=== PATIENT | male | born 1990 | race African-American/Black ===

== ENCOUNTER 2017-06-28 06:45 | Observation (INO) | payer SELFPAY ==
[~2017-06-28] VITALS: Ht 185.4 cm; Wt 76.0 kg
[~2017-06-28 06:45] MED LIST: PROM25SU8 PO; Z.0.NO CURRENT MEDS
[2017-06-28 06:48] VITALS: BP 145/84; PULSE 82; RESP 18; TEMP 98.7; O2SAT 97
[2017-06-28] MEDS ORDERED: SODIUM CHLOR 0.9% 1000 ML INJ 1,000 ML IV SCH (07:22)
--- NOTE | 2017-06-28 07:22 | PD ---
HPI Chief Complaint: Oral / Dental Pain or Problem Time Seen by Provider: 07:19 Travel History International Travel<30 days: No Contact w/Intl Traveler<30days: No Traveled to known affect area: No History of Present Illness HPI 27-year-old Afro-[place]ian male presents emergency Department with worsening dental pain on the right lower jaw emanating from the number 29/30 tooth. Patient states it started yesterday but got much worse last evening. He has had fever and chills. Increasing pain 10 out of 10 with swelling to the right lower jaw extending into the right neck, with reports of radiation into the neck to the shoulder. Patient is having difficulty swallowing, but states no swelling in the throat itself. He complains of pain under the tongue. Patient has no previous history of dental issues or diabetes. He has no known drug allergies. PFSH Past Medical History Medical History: Denies Significant Hx Diminished Hearing: No Immunizations Current: Yes Past Surgical History Surgical History: No Previous Surgery Social History Alcohol Use: Yes Tobacco Use: No Substance Use: Yes (marijuana) Allergies-Medications (Allergen,Severity, Reaction): Coded Allergies: No Known Allergies (Verified Adverse Reaction, Unknown, 06/28/17) Reported Meds & Prescriptions Reported Meds & Active Scripts Active Tramadol (Tramadol HCl) 50 Mg Tab 50 Mg PO Q6H PRN Prednisone 20 Mg Tab 20 Mg PO BID 5 Days Clindamycin (Clindamycin HCl) 150 Mg Cap 300 Mg PO Q6H 10 Days Review of Systems Except as stated in HPI: all other systems reviewed are Neg General / Constitutional: Positive: Fever, Chills Eyes: No: Visual changes HENT: Positive: Neck Stiffness, Neck Pain, Dental Difficulties, No: Headaches, Vertigo, Lightheadedness, Sore Throat, Rhinitis, Rhinorrhea, Congestion, Nosebleed, Gingival Bleeding, Ear Discharge, Earache Cardiovascular: No: Chest Pain or Discomfort Respiratory: No: Shortness of Breath Gastrointestinal: No: Abdominal Pain Genitourinary: No: Dysuria Musculoskeletal: No: Pain Skin: No Rash Neurologic: No: Weakness Psychiatric: No: Depression Endocrine: No: Polydipsia Hematologic/Lymphatic: No: Easy Bruising Physical Exam Narrative GENERAL: Patient appears in moderate to severe distress. SKIN: Warm and dry. Normal color. Normal turgor. No erythema. HEAD: Atraumatic. Normocephalic. Patient has swelling to the right lower jaw with mild swelling into the right anterior neck below the ramus which is extremely tender. EYES: Pupils equal and round. No scleral icterus. No injection or drainage. ENT: No nasal bleeding or discharge. Mucous membranes pink and moist. TMs are clear bilaterally. No sinus tenderness. Patient has swelling and significant tenderness along the right lower jaw. Teeth actually look in fairly good repair with no obvious caries. No drainable abscesses noted. The area below the tongue does not seem to be minimally swollen or indurated. Airway appears normal. Uvula is midline. NECK: Trachea midline. Supple. Tender with palpation to the right anterior aspect with mild swelling noted below the dental abscess area. No significant lymphadenopathy. CARDIOVASCULAR: Regular rate and rhythm. RESPIRATORY: No accessory muscle use. Clear to auscultation. Breath sounds equal bilaterally. GASTROINTESTINAL: Abdomen soft, non-tender, nondistended. Hepatic and splenic margins not palpable. MUSCULOSKELETAL: Extremities without clubbing, cyanosis, or edema. No obvious deformities. NEUROLOGICAL: Awake and alert. No obvious cranial nerve deficits. Motor grossly within normal limits. Five out of 5 muscle strength in the arms and legs. Normal speech. PSYCHIATRIC: Appropriate mood and affect; insight and judgment normal. Data Data Last Documented VS Vital Signs Date Time Temp Pulse Resp B/P (MAP) Pulse Ox O2 Delivery O2 Flow Rate FiO2 06/28/17 07:57 18 06/28/17 06:48 98.7 82 145/84 (104) 97 Orders Orders Complete Blood Count With Diff (06/28/17 07:22) Comprehensive Metabolic Panel (06/28/17 07:22) Lactic Acid (06/28/17 07:22) Iv Access Insert/Monitor (06/28/17 07:22) Ecg Monitoring (06/28/17 07:22) Oximetry (06/28/17 07:22) Sodium Chlor 0.9% 1000 Ml Inj (Ns 1000 M (06/28/17 07:22) Sodium Chloride 0.9% Flush (Ns Flush) (06/28/17 07:30) Ketorolac Inj (Toradol Inj) (06/28/17 07:30) Morphine Inj (Morphine Inj) (06/28/17 07:30) Clindamycin 900 Mg/Ns Premix (Cleocin 90 (06/28/17 07:30) Ct Soft Tiss Neck W Iv Cont (06/28/17 ) Dexamethasone Inj (Decadron Inj) (06/28/17 07:45) Iohexol 350 Inj (Omnipaque 350 Inj) (06/28/17 08:38) Labs Laboratory Tests Test 06/28/17 07:40 White Blood Count 11.6 TH/MM3 Red Blood Count 5.05 MIL/MM3 Hemoglobin 15.1 GM/DL Hematocrit 46.4 % Mean Corpuscular Volume 91.8 FL Mean Corpuscular Hemoglobin 30.0 PG Mean Corpuscular Hemoglobin Concent 32.6 % Red Cell Distribution Width 13.9 % Platelet Count 270 TH/MM3 Mean Platelet Volume 8.8 FL Neutrophils (%) (Auto) 75.0 % Lymphocytes (%) (Auto) 16.2 % Monocytes (%) (Auto) 7.2 % Eosinophils (%) (Auto) 1.2 % Basophils (%) (Auto) 0.4 % Neutrophils # (Auto) 8.7 TH/MM3 Lymphocytes # (Auto) 1.9 TH/MM3 Monocytes # (Auto) 0.8 TH/MM3 Eosinophils # (Auto) 0.1 TH/MM3 Basophils # (Auto) 0.0 TH/MM3 CBC Comment DIFF FINAL Differential Comment Blood Urea Nitrogen 13 MG/DL Creatinine 1.18 MG/DL Random Glucose 77 MG/DL Total Protein 8.4 GM/DL Albumin 4.4 GM/DL Calcium Level 9.5 MG/DL Alkaline Phosphatase 85 U/L Aspartate Amino Transf (AST/SGOT) 13 U/L Alanine Aminotransferase (ALT/SGPT) 20 U/L Total Bilirubin 0.3 MG/DL Sodium Level 139 MEQ/L Potassium Level 4.3 MEQ/L Chloride Level 103 MEQ/L Carbon Dioxide Level 31.5 MEQ/L Anion Gap 5 MEQ/L Estimat Glomerular Filtration Rate 89 ML/MIN Lactic Acid Level 1.6 mmol/L [facility] Medical Decision Making Medical Screen Exam Complete: Yes Emergency Medical Condition: Yes Differential Diagnosis Dental pain. Dental abscess. Possible early Linus's angina. Narrative Course Patient appears medically stable at time of exam although in pain. Labs ordered including CBC, CMP, lactic acid. IV access is obtained and the patient is given 900 mg clindamycin IV. Patient is also given 30 mg Toradol IV, 8 mg Decadron IV, 2 mg morphine IV. Patient is discussed with and examined with Dr. Trent, who agrees CT of the soft tissues of the neck is warranted. CT read shows: Dental disease involving the maxillary dual original the right in the region of the first and second molar with extensive phlegmonous change and possible subperiosteal abscess in the minimal surface. Patient and CT findings are discussed with Dr. Trent. He recommends running the patient by Dr. Plummer, the oral surgeon. Patient was discussed with Dr. Plummer who recommends admitting the patient overnight for IV antibiotics with follow-up in his office tomorrow morning. Call was placed to the hospitalist for admission. Diagnosis Primary Impression: Dental abscess Admitting Information Admitting Physician Requests: Observation Condition: Stable Ashish Lindsey Jun 28, 2017 07:22
[2017-06-28] MEDS ORDERED: SODIUM CHLORIDE 0.9% FLUSH 10 ML FLUSH IV FLUSH PRN ×2 (07:30→11:30)
[2017-06-28] MEDS ORDERED: MORPHINE SULFATE 2 MG/ML INJ IV PUSH ONE (07:30)
[2017-06-28] MEDS ORDERED: CLINDAMYCIN 900 MG/NS PREMIX 50 ML IV ONE (07:30)
[2017-06-28] MEDS ORDERED: KETOROLAC TROMETHAMINE 30 MG/ML (IVP) VIAL IVP ONE (07:30)
[2017-06-28] MEDS ORDERED: DEXAMETHASONE SOD PHOS 4 MG/ML VIAL IV PUSH ONE (07:45)
[2017-06-28 08:11] LABS: AUTOMATED NEUTROPHIL # 8.7 TH/MM3 (1.8-7.7); BASOPHIL % 0.4 % (0.0-2.0); EOSINOPHIL # 0.1 TH/MM3 (0-0.4); EOSINOPHIL % 1.2 % (0.0-4.0); HEMATOCRIT 46.4 % (39.0-51.0); HEMOGLOBIN 15.1 GM/DL (13.0-17.0); LYMPH % 16.2 % (9.0-44.0); LYMPHOCYTE # 1.9 TH/MM3 (1.0-4.8); MEAN CELL VOLUME 91.8 FL (80.0-100.0); MEAN CORPUSCULAR HGB CONC 32.6 % (32.0-36.0); MEAN PLATELET VOLUME 8.8 FL (7.0-11.0); MONO % 7.2 % (0.0-8.0); MONOCYTE # 0.8 TH/MM3 (0-0.9); PLATELET COUNT 270 TH/MM3 (150-450); RED BLOOD COUNT 5.05 MIL/MM3 (4.50-5.90); RED CELL DISTRIBUTION WIDTH 13.9 % (11.6-17.2); WHITE BLOOD COUNT 11.6 TH/MM3 (4.0-11.0)
[2017-06-28 08:20] LABS: ALBUMIN 4.4 GM/DL (3.4-5.0); ALT (GPT) 20 U/L (12-78); AST (GOT) 13 U/L (15-37); BICARBONATE 31.5 MEQ/L (21.0-32.0); BLOOD UREA NITROGEN 13 MG/DL (7-18); CALCIUM 9.5 MG/DL (8.5-10.1); CHLORIDE 103 MEQ/L (98-107); CREATININE 1.18 MG/DL (0.60-1.30); GLOMERULAR FILTRATION RATE 89 ML/MIN (>89); GLUCOSE,RANDOM 77 MG/DL (74-106); SODIUM (NA) 139 MEQ/L (136-145)
[2017-06-28 08:22] LABS: ALKALINE PHOSPHATASE 85 U/L (45-117); TOTAL BILIRUBIN ADULT 0.3 MG/DL (0.2-1.0); TOTAL PROTEIN 8.4 GM/DL (6.4-8.2)
[2017-06-28] MEDS ORDERED: IOHEXOL 350 MG/ML 10 ML VIAL (for RAD DIAG) IVCONTRAST ONE (08:38)
--- NOTE | 2017-06-28 09:46 | RADRPT ---
EXAM DATE/TIME: 06/28/2017 08:16 [place] COMPARISON: No previous studies available for comparison. INDICATIONS : Dental pain, swelling IV CONTRAST: 71 cc Omnipaque 350 (iohexol) IV RADIATION DOSE: 14.99 CTDIvol (mGy) MEDICAL HISTORY : None SURGICAL HISTORY : None. ENCOUNTER: Initial ACUITY: 2 days PAIN SCALE: 9/10 LOCATION: Right mandible TECHNIQUE: Volumetric scanning of the neck was performed. Using automated exposure control and adjustment of th e mA and/or kV according to patient size, radiation dose was kept as low as reasonably achievable to obtain optimal diagnostic quality images. DICOM format image data is available electronically for r eview and comparison. FINDINGS: Examination of the skull base demonstrates no evidence of deep infiltrating mucosal lesion. The oroph arynx, hypopharynx, glottic and subglottic airway demonstrate no abnormality. There is phlegmon involving the masseter muscle on the right side as well as the buccinator. On the l ingual surface of the maxilla there is findings of dental caries was periapical abscess involving the first and second molar. The mandibular alveolar ridge is intact. The lung apices demonstrate no abnormality. CONCLUSION: Dental disease involving the maxillary dual original the right in the region of the first and second molar with extensive phlegmonous change and possible subperiosteal abscess in the minimal surface. José Miguel Howard MD on June 28, 2017 at 9:40 Board Certified Radiologist. This report was verified electronically.
[2017-06-28] MEDS ORDERED: CLIN150C14 PO (09:53)
[2017-06-28] MEDS ORDERED: TRAM50TA PO (09:53)
[2017-06-28] MEDS ORDERED: PRED20 PO (09:53)
--- NOTE | 2017-06-28 09:58 | PD ---
Data Data Last Documented VS Vital Signs Date Time Temp Pulse Resp B/P (MAP) Pulse Ox O2 Delivery O2 Flow Rate FiO2 06/28/17 07:57 18 06/28/17 06:48 98.7 82 145/84 (104) 97 Orders Orders Complete Blood Count With Diff (06/28/17 07:22) Comprehensive Metabolic Panel (06/28/17 07:22) Lactic Acid (06/28/17 07:22) Iv Access Insert/Monitor (06/28/17 07:22) Ecg Monitoring (06/28/17 07:22) Oximetry (06/28/17 07:22) Sodium Chlor 0.9% 1000 Ml Inj (Ns 1000 M (06/28/17 07:22) Sodium Chloride 0.9% Flush (Ns Flush) (06/28/17 07:30) Ketorolac Inj (Toradol Inj) (06/28/17 07:30) Morphine Inj (Morphine Inj) (06/28/17 07:30) Clindamycin 900 Mg/Ns Premix (Cleocin 90 (06/28/17 07:30) Ct Soft Tiss Neck W Iv Cont (06/28/17 ) Dexamethasone Inj (Decadron Inj) (06/28/17 07:45) Iohexol 350 Inj (Omnipaque 350 Inj) (06/28/17 08:38) Labs Laboratory Tests Test 06/28/17 07:40 White Blood Count 11.6 TH/MM3 Red Blood Count 5.05 MIL/MM3 Hemoglobin 15.1 GM/DL Hematocrit 46.4 % Mean Corpuscular Volume 91.8 FL Mean Corpuscular Hemoglobin 30.0 PG Mean Corpuscular Hemoglobin Concent 32.6 % Red Cell Distribution Width 13.9 % Platelet Count 270 TH/MM3 Mean Platelet Volume 8.8 FL Neutrophils (%) (Auto) 75.0 % Lymphocytes (%) (Auto) 16.2 % Monocytes (%) (Auto) 7.2 % Eosinophils (%) (Auto) 1.2 % Basophils (%) (Auto) 0.4 % Neutrophils # (Auto) 8.7 TH/MM3 Lymphocytes # (Auto) 1.9 TH/MM3 Monocytes # (Auto) 0.8 TH/MM3 Eosinophils # (Auto) 0.1 TH/MM3 Basophils # (Auto) 0.0 TH/MM3 CBC Comment DIFF FINAL Differential Comment Blood Urea Nitrogen 13 MG/DL Creatinine 1.18 MG/DL Random Glucose 77 MG/DL Total Protein 8.4 GM/DL Albumin 4.4 GM/DL Calcium Level 9.5 MG/DL Alkaline Phosphatase 85 U/L Aspartate Amino Transf (AST/SGOT) 13 U/L Alanine Aminotransferase (ALT/SGPT) 20 U/L Total Bilirubin 0.3 MG/DL Sodium Level 139 MEQ/L Potassium Level 4.3 MEQ/L Chloride Level 103 MEQ/L Carbon Dioxide Level 31.5 MEQ/L Anion Gap 5 MEQ/L Estimat Glomerular Filtration Rate 89 ML/MIN Lactic Acid Level 1.6 mmol/L MDM Supervised Visit with JOSE DAVID: Yes Narrative Course The history, exam, and medical decision-making in the associated mid-level provider note were completed with my assistance. I reviewed and agree with the findings presented. I attest that I had a [id number] encounter with the patient on the same day, and personally performed and documented my assessment and findings in the medical record. *My assessment and Findings: 27-year-old man presents with facial swelling tenderness. I was asked to come see the patient because of Jose David concern for submental infection or Linus's angina. H&H fullness on the side of the face, underneath the tongue the palate is soft without abnormal fullness. Patient's. Tender in it does, daily exam some. CT shows phlegmon near the mandible, as well as some periapical abscess. We'll need IV steroids and IV antibiotics, as well as OMFS consultation. Distal has consultation may be able to be done as an outpatient. Scripts Tramadol (Tramadol) 50 Mg Tab 50 MG PO Q6H Y for PAIN, #20 TAB 0 Refills Prov: Manny Trent MD 06/28/17 Prednisone (Prednisone) 20 Mg Tab 20 MG PO BID for 5 Days, #10 TAB 0 Refills Prov: Manny Trent MD 06/28/17 Clindamycin (Clindamycin) 150 Mg Cap 300 MG PO Q6H for Infection for 10 Days, #80 CAP 0 Refills Prov: Manny Trent MD 06/28/17 Condition: Stable Manny Trent MD Jun 28, 2017 09:58
--- NOTE | 2017-06-28 11:20 | HHI.HP ---
[facility] Service Family Medicine Primary Care Physician No Primary Care Physician Admission Diagnosis Dental Abscess Diagnoses: International Travel<30 Days: No Contact w/Intl Traveler<30days: No Known Affected Area: No History of Present Illness Patient is a 27-year-old male with no past medical history presents today for facial swelling. He states that he's had cavities for approximately 1 year and believes he may have a tooth abscess today. He reports that he is does not see a dentist, but believes he has cavities on his right upper and lower teeth. States that yesterday he woke up and his face was swollen and painful. The pain was throbbing, constant, on the right side of his face near his jaw and underneath.. He attempted to wait out the pain, used ibuprofen, however today the pain persisted. He does note that since he is entering the ED and received some medications the swelling has receded somewhat. He reports a weird taste in his mouth, "like pus." Does not note any blood in his mouth. He has reduced his oral intake because it hurts to chew. No problems swallowing, moving tongue, opening mouth, difficulty breathing, tongue swelling, pain with swallowing, coughing when eating. No nausea, vomiting, fever, chills, abdominal pain, chest pain, shortness of breath. (Rodríguez Valentin MD R1) Review of Systems Constitutional: DENIES: Fatigue, Fever, Weight gain, Weight loss, Chills, Change in appetite Endocrine: DENIES: Polydipsia, Polyuria Eyes: DENIES: Blurred vision, Diplopia, Eye inflammation, Eye pain, Vision loss , Photosensitivity, Double Vision Ears, nose, mouth, throat: COMPLAINS OF: Tinnitus (in past), Ear Pain, Running Nose, Toothache, Odynophagia, DENIES: Hearing loss, Vertigo, Nasal discharge, Oral lesions, Throat pain, Hoarseness, Epistaxis, Sinus Pain Respiratory: DENIES: Apneas, Cough, Snoring, Wheezing, Hemoptysis, Sputum production, Shortness of breath Cardiovascular: DENIES: Chest pain, Palpitations, Syncope Gastrointestinal: DENIES: Abdominal pain, Black stools, Bloody stools, Constipation, Diarrhea, Nausea, Vomiting, Anorexia Genitourinary: DENIES: Urinary frequency, Hematuria, Dysuria Musculoskeletal: COMPLAINS OF: Joint pain (TMJ), Muscle aches (In neck), Neck pain (Near abcess tooth), DENIES: Stiffness, Back pain Integumentary: DENIES: Abnormal pigmentation, Rash Hematologic/lymphatic: COMPLAINS OF: Lymphadenopathy, DENIES: Bruising Immunologic/allergic: DENIES: Eczema, Urticaria Neurologic: DENIES: Abnormal gait, Headache, Paresthesias Psychiatric: DENIES: Anxiety, Confusion, Mood changes, Depression, Hallucinations, Suicidal Ideation, Homicidal Ideation (Rodríguez Valentin MD R1) Past Family Social History Past Medical History None Past Surgical History None (Rodríguez Valentin MD R1) Allergies: Coded Allergies: No Known Allergies (Verified Adverse Reaction, Unknown, 06/28/17) Family History Father: Unknown Mother: Diabetes, "heart problems" Siblings: diabetes Social History EtOH: 2 beers a days Tobacco: 1 pack a day for 4-5 years, quit a few days ago Drugs: marijuana, opioids (Rodríguez Valentin MD R1) Physical Exam Vital Signs Vital Signs Date Time Temp Pulse Resp B/P (MAP) Pulse Ox O2 Delivery O2 Flow Rate FiO2 06/28/17 10:13 18 06/28/17 07:57 18 06/28/17 06:48 98.7 82 18 145/84 (104) 97 Physical Exam GENERAL: This is a well-nourished, well-developed patient, in no apparent distress. SKIN: No rashes, ecchymoses or lesions. Swelling along right posterior inferior mandible. Submandibular swelling. Lymphadenopathy in right cervical chain. Cool and dry. HEAD: Atraumatic. Normocephalic. No temporal or scalp tenderness. EYES: Pupils equal round and reactive. Extraocular motions intact. No scleral icterus. No injection or drainage. ENT: Nose without bleeding, purulent drainage or septal hematoma. Throat without erythema, tonsillar hypertrophy or exudate. Uvula midline. Airway patent. ORAL: Erythema and swelling to right posterior inferior area, around tooth 30/ 31. No ulceration, blood, pus. NECK: Trachea midline. No JVD or lymphadenopathy. Supple, nontender, no meningeal signs. CARDIOVASCULAR: Regular rate and rhythm without murmurs, gallops, or rubs. RESPIRATORY: Clear to auscultation. Breath sounds equal bilaterally. No wheezes , rales, or rhonchi. GASTROINTESTINAL: Abdomen soft, non-tender, nondistended. No hepato-splenomegaly , or palpable masses. No guarding. MUSCULOSKELETAL: Extremities without clubbing, cyanosis, or edema. No joint tenderness, effusion, or edema noted. No calf tenderness. NEUROLOGICAL: Awake and alert. Motor and sensory grossly within normal limits. Five out of 5 muscle strength in all muscle groups. Normal speech. Laboratory Laboratory Tests Test 06/28/17 07:40 White Blood Count 11.6 Red Blood Count 5.05 Hemoglobin 15.1 Hematocrit 46.4 Mean Corpuscular Volume 91.8 Mean Corpuscular Hemoglobin 30.0 Mean Corpuscular Hemoglobin Concent 32.6 Red Cell Distribution Width 13.9 Platelet Count 270 Mean Platelet Volume 8.8 Neutrophils (%) (Auto) 75.0 Lymphocytes (%) (Auto) 16.2 Monocytes (%) (Auto) 7.2 Eosinophils (%) (Auto) 1.2 Basophils (%) (Auto) 0.4 Neutrophils # (Auto) 8.7 Lymphocytes # (Auto) 1.9 Monocytes # (Auto) 0.8 Eosinophils # (Auto) 0.1 Basophils # (Auto) 0.0 CBC Comment DIFF FINAL Differential Comment Blood Urea Nitrogen 13 Creatinine 1.18 Random Glucose 77 Total Protein 8.4 Albumin 4.4 Calcium Level 9.5 Alkaline Phosphatase 85 Aspartate Amino Transf (AST/SGOT) 13 Alanine Aminotransferase (ALT/SGPT) 20 Total Bilirubin 0.3 Sodium Level 139 Potassium Level 4.3 Chloride Level 103 Carbon Dioxide Level 31.5 Anion Gap 5 Estimat Glomerular Filtration Rate 89 Lactic Acid Level 1.6 (Rodríguez Valentin MD R1) Result Diagram: 06/28/17 0740 06/28/17 0740 Caprini VTE Risk Assessment Caprini VTE Risk Assessment: No/Low Risk (score <= 1) Caprini Risk Assessment Model Point Value = 1 Point Value = 2 Point Value = 3 Point Value = 5 Age 41-60 Minor surgery BMI > 25 kg/m2 Swollen legs Varicose veins or History of unexplained or recurrent spontaneous Oral contraceptives or hormone replacement Sepsis (< 1 month) Serious lung disease, including pneumonia (< 1 month) Abnormal pulmonary function Acute myocardial infarction Congestive heart failure (< 1 month) History of inflammatory bowel disease Medical patient at bed rest Age 61-74 Arthroscopic surgery Major open surgery (> 45 min) Laparoscopic surgery (> 45 min) Malignancy Confined to bed (> 72 hours) Immobilizing plaster cast Central venous access Age >= 75 History of VTE Family history of VTE Factor V Leiden Prothrombin [id number] Lupus anticoagulant Anticardiolipin antibodies Elevated serum homocysteine Heparin-induced thrombocytopenia Other congenital or acquired thrombophilia Stroke (< 1 month) Elective arthroplasty Hip, pelvis, or leg fracture Acute spinal cord injury (< 1 month) Prophylaxis Regimen Total Risk Factor Score Risk Level Prophylaxis Regimen 0-1 Low Early ambulation 2 Moderate Order ONE of the following: *Sequential Compression Device (SCD) *Heparin 5000 units SQ BID 3-4 Higher Order ONE of the following medications: *Heparin 5000 units SQ TID *Enoxaparin/Lovenox 40 mg SQ daily (WT < 150 kg, CrCl > 30 mL/min) *Enoxaparin/Lovenox 30 mg SQ daily (WT < 150 kg, CrCl > 10-29 mL/min) *Enoxaparin/Lovenox 30 mg SQ BID (WT < 150 kg, CrCl > 30 mL/min) AND/OR *Sequential Compression Device (SCD) 5 or more Highest Order ONE of the following medications: *Heparin 5000 units SQ TID (Preferred with Epidurals) *Enoxaparin/Lovenox 40 mg SQ daily (WT < 150 kg, CrCl > 30 mL/min) *Enoxaparin/Lovenox 30 mg SQ daily (WT < 150 kg, CrCl > 10-29 mL/min) *Enoxaparin/Lovenox 30 mg SQ BID (WT < 150 kg, CrCl > 30 mL/min) AND *Sequential Compression Device (SCD) (oRdríguez Valentin MD R1) Assessment and Plan Assessment and Plan 27-year-old male with a likely abscess near right lower first and second molars. (Rodríguez Valentin MD R1) Problem List: (1) Dental abscess ICD Codes: K04.7 - Periapical abscess without sinus Status: Acute Plan: Back right oral abscess near first and second molars seen on CT. Patient was discussed with Dr. Plummer by the ED physician who recommended overnight IV antibiotics and follow-up in his office the next morning. -Toradol for pain -Morphine 2 mg breakthrough pain -Clindamycin 600 mg every 8 -Prednisone 20 mg twice a day for swelling -Monitor for systemic or airway changes (2) FEN Plan: Fluids: Tolerating by mouth fluids Electrolytes: Monitor and replete as needed Nutrition: Regular diet (Rodríguez Valentin MD R1) Problem List: (1) Dental abscess ICD Codes: K04.7 - Periapical abscess without sinus Status: Acute Plan: Back right oral abscess near first and second molars seen on CT. Patient was discussed with Dr. Plummer by the ED physician who recommended overnight IV antibiotics and follow-up in his office the next morning. -Toradol for pain -Morphine 2 mg breakthrough pain -Clindamycin 600 mg every 8 -Prednisone 20 mg twice a day for swelling -Monitor for systemic or airway changes (2) FEN Plan: Fluids: Tolerating by mouth fluids Electrolytes: Monitor and replete as needed Nutrition: Regular diet See the residents documentation for details. I saw and evaluated the patient regarding the bob portions of this evaluation and agree with the residents findings and plans as written. I have reviewed the patients past medical/surgical and social histories and updated as appropriate. Parts of this note were created using [employer] voice recognition software program. While efforts were made to correct any mistakes made by this software, some mistakes, errors, and omissions may remain in the final note that were not caught when the note was originally created. Plan of care was discussed and agreed upon with the patient as specifically documented in the above note. An opportunity to ask questions with explanation was provided. Patient voiced understanding on all information reviewed and discussed. We'll need to follow facial surgery an outpatient. (Reynaldo Snyder MD) Rodríguez Valentin MD R1 Jun 28, 2017 11:20 Reynaldo Snyder MD Jun 29, 2017 15:19
[2017-06-28] MEDS ORDERED: BISACODYL 10 MG SUPP RECTAL PRN (11:30)
[2017-06-28] MEDS ORDERED: ONDANSETRON HCL 4 MG/2 ML VIAL IVP PRN (11:30)
[2017-06-28] MEDS ORDERED: LACTULOSE SYRUP 20 GM/30 ML CUP PO PRN (11:30)
[2017-06-28] MEDS ORDERED: MAGNESIUM HYDROXIDE SUSP 30 ML CUP PO PRN (11:30)
[2017-06-28] MEDS ORDERED: NALOXONE HCL 0.4 MG/ML AMP IV PUSH PRN ×2 (11:30→11:45)
[2017-06-28] MEDS ORDERED: SENNOSIDES 8.6 MG TAB PO PRN (11:30)
[2017-06-28] MEDS ORDERED: ACETAMINOPHEN 325 MG TAB PO PRN (11:30)
[2017-06-28] MEDS ORDERED: KETOROLAC TROMETHAMINE 30 MG/ML (IVP) VIAL IV PUSH PRN ×2 (11:45)
[2017-06-28] MEDS ORDERED: MORPHINE SULFATE 2 MG/ML INJ IV PUSH PRN (11:45)
[2017-06-28] MEDS ORDERED: CLINDAMYCIN INJ 600 MG in SODIUM CHLORIDE 0.9% INJ 100 ML IV SCH ×2 (11:45→15:30)
[2017-06-28] MEDS ORDERED: IBUPROFEN 400 MG TAB PO PRN (11:45)
[2017-06-28 11:48] VITALS: BP 132/68; O2SAT 96
[2017-06-28 12:01] VITALS: BP 136/84; PULSE 75; RESP 18; TEMP 98.4; O2SAT 99
[2017-06-28] MEDS: CLINDAMYCIN 600 MG/NS PREMIX 50 ML IV SCH ×2 (15:18→23:16)
[2017-06-28 17:34] VITALS: BP 135/67; PULSE 75; RESP 18; TEMP 98.7; O2SAT 97
[2017-06-28] MEDS: predniSONE 20 MG TAB PO SCH (20:40)
[2017-06-28] MEDS: DOCUSATE SODIUM 50 MG/SENNA 8.6 MG TAB PO SCH (20:40)
[2017-06-28] MEDS ORDERED: SODIUM CHLORIDE 0.9% FLUSH 10 ML FLUSH IV FLUSH SCH (21:00)
[2017-06-28 21:33] VITALS: BP 135/78; PULSE 68; RESP 18; TEMP 98.5; O2SAT 98
[2017-06-29 00:32] VITALS: BP_SYST 117; BP_SYST 125; BP_DIAS 59; BP_DIAS 62; PULSE 67; PULSE 96; RESP 18; TEMP 98.1; TEMP 98.2; O2SAT 96
[2017-06-29 05:01] VITALS: BP 119/57; PULSE 63; RESP 18; TEMP 98; O2SAT 97
[2017-06-29] MEDS: CLINDAMYCIN 600 MG/NS PREMIX 50 ML IV SCH (06:13)
[2017-06-29 08:26] VITALS: BP 127/58; PULSE 66; RESP 20; TEMP 98.2; O2SAT 98
[2017-06-29 08:34] LABS: HEMATOCRIT 41.4 % (39.0-51.0); HEMOGLOBIN 14.1 GM/DL (13.0-17.0); MEAN CELL VOLUME 90.3 FL (80.0-100.0); MEAN CORPUSCULAR HEMOGLOBIN 30.8 PG (27.0-34.0); MEAN CORPUSCULAR HGB CONC 34.1 % (32.0-36.0); MEAN PLATELET VOLUME 8.9 FL (7.0-11.0); PLATELET COUNT 263 TH/MM3 (150-450); RED BLOOD COUNT 4.58 MIL/MM3 (4.50-5.90); RED CELL DISTRIBUTION WIDTH 13.7 % (11.6-17.2); WHITE BLOOD COUNT 13.7 TH/MM3 (4.0-11.0)
[2017-06-29] MEDS: predniSONE 20 MG TAB PO SCH (09:00)
[2017-06-29 09:01] LABS: BICARBONATE 26.9 MEQ/L (21.0-32.0); CALCIUM 9.3 MG/DL (8.5-10.1); CREATININE 0.84 MG/DL (0.60-1.30)
[2017-06-29] MEDS: DOCUSATE SODIUM 50 MG/SENNA 8.6 MG TAB PO SCH (10:28)
[2017-06-29] MEDS ORDERED: AUGM875T3 PO ×2 (11:03→11:31)
--- NOTE | 2017-06-29 11:03 | HHI.DS ---
Discharge Summary Admission Date Jun 28, 2017 at 10:59 Admitting Diagnosis Dental Abscess (1) Dental abscess Plan: Back right oral abscess near first and second molars seen on CT. Patient was discussed with Dr. Plummer by the ED physician who recommended overnight IV antibiotics and follow-up in his office the next morning. -Toradol for pain -Morphine 2 mg breakthrough pain -Clindamycin 600 mg every 8 -Prednisone 20 mg twice a day for swelling -Monitor for systemic or airway changes ICD Codes: K04.7 - Periapical abscess without sinus Status: Acute (2) FEN Plan: Fluids: Tolerating by mouth fluids Electrolytes: Monitor and replete as needed Nutrition: Regular diet Brief History Patient is a 27-year-old male with no past medical history presents today for facial swelling. He states that he's had cavities for approximately 1 year and believes he may have a tooth abscess today. He reports that he is does not see a dentist, but believes he has cavities on his right upper and lower teeth. States that yesterday he woke up and his face was swollen and painful. The pain was throbbing, constant, on the right side of his face near his jaw and underneath.. He attempted to wait out the pain, used ibuprofen, however today the pain persisted. He does note that since he is entering the ED and received some medications the swelling has receded somewhat. He reports a weird taste in his mouth, "like pus." Does not note any blood in his mouth. He has reduced his oral intake because it hurts to chew. No problems swallowing, moving tongue, opening mouth, difficulty breathing, tongue swelling, pain with swallowing, coughing when eating. No nausea, vomiting, fever, chills, abdominal pain, chest pain, shortness of breath. CBC/BMP: 06/29/17 0742 06/29/17 0742 Significant Findings Laboratory Tests Test 06/28/17 07:40 06/29/17 07:42 White Blood Count 11.6 TH/MM3 (4.0-11.0) 13.7 TH/MM3 (4.0-11.0) Neutrophils (%) (Auto) 75.0 % (16.0-70.0) Neutrophils # (Auto) 8.7 TH/MM3 (1.8-7.7) Total Protein 8.4 GM/DL (6.4-8.2) Aspartate Amino Transf (AST/SGOT) 13 U/L (15-37) Pt Condition on Discharge: Stable Discharge Disposition: Discharge Home Discharge Instructions DIET: Follow Instructions for: As Tolerated, No Restrictions Activities you can perform: Regular-No Restrictions Rodríguez Valentin MD R1 Jun 29, 2017 11:03
--- NOTE | 2017-06-29 11:04 | HHI.DCPOC ---
Discharge Care Plan Diagnosis: (1) Dental abscess Goals to Promote Your Health * To prevent worsening of your condition and complications * To maintain your health at the optimal level Directions to Meet Your Goals Take your medications as prescribed Follow your dietary instruction Follow activity as directed Follow up with this morning, Patient given instructions to the physicians office. Keep your appointments as scheduled Take your immunizations and boosters as scheduled If your symptoms worsen call your PCP, if no PCP go to Urgent Care Center or Emergency Room Smoking is Dangerous to Your Health. Avoid second hand smoke Call the 24-hour hour crisis hotline for domestic abuse at Rodríguez Vaelntin MD R1 Jun 29, 2017 11:04 Reynaldo Snyder MD Jun 29, 2017 12:29
[2017-06-29 12:07] VITALS: BP 125/58; PULSE 67; RESP 20; TEMP 98.6; O2SAT 98
--- NOTE | 2017-06-29 12:19 | HHI.HP ---
[facility] Service Family Medicine Primary Care Physician No Primary Care Physician Admission Diagnosis Dental Abscess Diagnoses: (1) Dental abscess (2) FEN International Travel<30 Days: No Contact w/Intl Traveler<30days: No Known Affected Area: No History of Present Illness Patient was seen and examined at bedside today. He states that his swelling and pain have decreased significantly. He states that he originally had the pain for about the past year, but is recently become worse. He describes feeling much better. He showed us a picture of the original swelling on the phone, and it seems that his face has improved by about 90% since his discomfort began. He has been able to eat some food, which did not cause him any issues. He is looking forward to leaving the hospital. He understands that he has to follow-up with maxillofacial surgery today. He has not had any side effects from the medication. Denies any issues with eye pain, or moving his eyes. No problems swallowing, moving tongue, opening mouth, difficulty breathing, tongue swelling, pain with swallowing, coughing when eating. No nausea, vomiting, fever, chills, abdominal pain, chest pain, shortness of breath. Review of Systems Ears, nose, mouth, throat: COMPLAINS OF: Toothache, DENIES: Tinnitus, Hearing loss, Nasal discharge, Throat pain, Hoarseness, Ear Pain, Running Nose, Epistaxis, Sinus Pain Other REVIEW OF SYSTEMS: General: Denies fever or other problems. Skin: Denies rash. HEENT: No diplopia. No epistaxis. No headache. Head: Denies head injury. Mild swelling over the right lower jaw. Respiratory: No cough. Denies shortness of breath. Cardiovascular: No chest pain. No reduced exercise tolerance. Gastrointestinal: No abdominal pain. No constipation or diarrhea. No hematemesis and rectal bleeding. Genitourinary: No abnormal urination. Hematologic: No easy bruisability. Psychiatric: Denies problems. Past Family Social History Past Medical History None Past Surgical History None Allergies: Coded Allergies: No Known Allergies (Verified Adverse Reaction, Unknown, 06/28/17) Family History Father: Unknown Mother: Diabetes, "heart problems" Siblings: diabetes Social History EtOH: 2 beers a days Tobacco: 1 pack a day for 4-5 years, quit a few days ago Drugs: marijuana, opioids Physical Exam Vital Signs Vital Signs Date Time Temp Pulse Resp B/P (MAP) Pulse Ox O2 Delivery O2 Flow Rate FiO2 06/29/17 08:26 98.2 66 20 127/58 (81) 98 06/29/17 08:00 06/29/17 05:01 98.0 63 18 119/57 (77) 97 06/29/17 00:32 98.1 67 18 125/62 (83) 96 06/28/17 21:33 98.5 68 18 135/78 (97) 98 06/28/17 17:34 98.7 75 18 135/67 (89) 97 Physical Exam GENERAL: This is a well-nourished, well-developed patient, in no apparent distress. SKIN: No rashes, ecchymoses or lesions. Cool and dry. HEAD: Atraumatic. Normocephalic. No temporal or scalp tenderness. EYES: Pupils equal round and reactive. Extraocular motions intact. No scleral icterus. No injection or drainage. ENT: Nose without bleeding, purulent drainage or septal hematoma. Throat without erythema, tonsillar hypertrophy or exudate. Uvula midline. Airway patent. Mild irritation noted around lower molar. Mildly tender to palpation over the right lower jaw. NECK: Trachea midline. No JVD or lymphadenopathy. Supple, nontender, no meningeal signs. CARDIOVASCULAR: Regular rate and rhythm without murmurs, gallops, or rubs. RESPIRATORY: Clear to auscultation. Breath sounds equal bilaterally. No wheezes , rales, or rhonchi. GASTROINTESTINAL: Abdomen soft, non-tender, nondistended. No hepato-splenomegaly , or palpable masses. No guarding. MUSCULOSKELETAL: Extremities without clubbing, cyanosis, or edema. No joint tenderness, effusion, or edema noted. No calf tenderness. Negative Homans sign bilaterally. NEUROLOGICAL: Awake and alert. Cranial nerves II through XII intact. Motor and sensory grossly within normal limits. Five out of 5 muscle strength in all muscle groups. Normal speech. Laboratory Laboratory Tests Test 06/29/17 07:42 White Blood Count 13.7 Red Blood Count 4.58 Hemoglobin 14.1 Hematocrit 41.4 Mean Corpuscular Volume 90.3 Mean Corpuscular Hemoglobin 30.8 Mean Corpuscular Hemoglobin Concent 34.1 Red Cell Distribution Width 13.7 Platelet Count 263 Mean Platelet Volume 8.9 Blood Urea Nitrogen 13 Creatinine 0.84 Random Glucose 100 Calcium Level 9.3 Sodium Level 138 Potassium Level 4.2 Chloride Level 102 Carbon Dioxide Level 26.9 Anion Gap 9 Estimat Glomerular Filtration Rate 132 Result Diagram: 06/29/17 0742 06/29/17 0742 Caprini VTE Risk Assessment Caprini VTE Risk Assessment: No/Low Risk (score <= 1) Caprini Risk Assessment Model Point Value = 1 Point Value = 2 Point Value = 3 Point Value = 5 Age 41-60 Minor surgery BMI > 25 kg/m2 Swollen legs Varicose veins or History of unexplained or recurrent spontaneous Oral contraceptives or hormone replacement Sepsis (< 1 month) Serious lung disease, including pneumonia (< 1 month) Abnormal pulmonary function Acute myocardial infarction Congestive heart failure (< 1 month) History of inflammatory bowel disease Medical patient at bed rest Age 61-74 Arthroscopic surgery Major open surgery (> 45 min) Laparoscopic surgery (> 45 min) Malignancy Confined to bed (> 72 hours) Immobilizing plaster cast Central venous access Age >= 75 History of VTE Family history of VTE Factor V Leiden Prothrombin [id number] Lupus anticoagulant Anticardiolipin antibodies Elevated serum homocysteine Heparin-induced thrombocytopenia Other congenital or acquired thrombophilia Stroke (< 1 month) Elective arthroplasty Hip, pelvis, or leg fracture Acute spinal cord injury (< 1 month) Prophylaxis Regimen Total Risk Factor Score Risk Level Prophylaxis Regimen 0-1 Low Early ambulation 2 Moderate Order ONE of the following: *Sequential Compression Device (SCD) *Heparin 5000 units SQ BID 3-4 Higher Order ONE of the following medications: *Heparin 5000 units SQ TID *Enoxaparin/Lovenox 40 mg SQ daily (WT < 150 kg, CrCl > 30 mL/min) *Enoxaparin/Lovenox 30 mg SQ daily (WT < 150 kg, CrCl > 10-29 mL/min) *Enoxaparin/Lovenox 30 mg SQ BID (WT < 150 kg, CrCl > 30 mL/min) AND/OR *Sequential Compression Device (SCD) 5 or more Highest Order ONE of the following medications: *Heparin 5000 units SQ TID (Preferred with Epidurals) *Enoxaparin/Lovenox 40 mg SQ daily (WT < 150 kg, CrCl > 30 mL/min) *Enoxaparin/Lovenox 30 mg SQ daily (WT < 150 kg, CrCl > 10-29 mL/min) *Enoxaparin/Lovenox 30 mg SQ BID (WT < 150 kg, CrCl > 30 mL/min) AND *Sequential Compression Device (SCD) Assessment and Plan Assessment and Plan 27-year-old male with a likely abscess near right lower first and second molars. Problem List: (1) Dental abscess ICD Codes: K04.7 - Periapical abscess without sinus Status: Acute Plan: Patient symptoms have improved significantly since yesterday. Reviewed the plan of care with him at length. Patient will need to follow up with Dr. Plummer today. The patient is known to the physician, and he will go there this morning for further follow-up. It seems that he did have a slight increase in his white blood count, which I believe is due to his steroid use. Visually his symptoms have improved significantly. Signs of discomfort, inflammation, and irritation have improved tremendously. I spoke to the patient at length about the importance of following up with facial surgery for his condition. I discussed with him about the importance of improved dental care in the future. We discussed his CT imaging at length. We spoke about possible options for treatment. Overall seems that he is doing significantly better today, than he did yesterday. We will renew him some antibiotics for him to take, but he does need further follow-up with facial surgery, which he understands. (2) FEN Plan: Fluids: Tolerating by mouth fluids Electrolytes: Monitor and replete as needed Nutrition: Regular diet Parts of this note were created using [employer] voice recognition software program. While efforts were made to correct any mistakes made by this software, some mistakes, errors, and omissions may remain in the final note that were not caught when the note was originally created. Plan of care was discussed and agreed upon with the patient as specifically documented in the above note. An opportunity to ask questions with explanation was provided. Medications were reviewed and discussed as appropriate including side effects and risks vs. benefit. Pt. was instructed should any symptoms worsen he should call for an [facility] appointment or report to the emergency department for further evaluation. Patient voiced understanding on all information reviewed and discussed. Physician Certification 2 Midnight Certification Type: Admission for Inpatient Services Order for Inpatient Services Patient is here for observation admission. Inpatient services are not certified. Estimated LOS (days): 1 1 day Post-Hospital Plan: Home Reynaldo Snyder MD Jun 29, 2017 12:19
== END 2017-06-29 12:43 | disposition home or self-care (01) ==
LOC: NEPD 06:45 → NEDA 10:59 → NEPHCDU 11:44
PROVIDERS: ADMIT Family Medicine; ATTEND Family Medicine
DX: K04.7 Periapical abscess without sinus (principal); Z87.891 Personal history of nicotine dependence; F12.10 Cannabis abuse, uncomplicated
CPT/HCPCS: 70491; 80048; 80053; 83605; 85025; 85027; 96361; 96374; 96375; 99285; G0378; J1100; J1885; J2270; J7030; J7512; Q9967

== ENCOUNTER 2017-06-29 15:53 | Emergency (ER) | payer SELFPAY ==
[~2017-06-29] VITALS: Ht 185.4 cm; Wt 85.0 kg
[~2017-06-29 15:53] MED LIST changes: +AUGM875T3 PO; -PROM25SU8 PO; -Z.0.NO CURRENT MEDS
[2017-06-29 15:55] VITALS: BP 167/83; PULSE 59; RESP 24; TEMP 98.2; O2SAT 98
--- NOTE | 2017-06-29 16:35 | PD ---
HPI Chief Complaint: Oral / Dental Pain or Problem Time Seen by Provider: 16:05 Travel History International Travel<30 days: No Contact w/Intl Traveler<30days: No Traveled to known affect area: No History of Present Illness HPI 27-year-old male presents to the emergency room for evaluation of dental pain. Patient was admitted to the hospital last night for IV antibiotics and followed up with Dr. Plummer this morning. He had his molar pulled in the office. States the numbing medication has worn off and now has significant pain. The pain worsened after he smoked a cigarette. States he was discharged with prescription for antibiotics and pain medication but he cannot afford the medication so he returned here. History Social History Alcohol Use: Yes Tobacco Use: No Allergies-Medications (Allergen,Severity, Reaction): Coded Allergies: No Known Allergies (Verified Adverse Reaction, Unknown, 06/28/17) Reported Meds & Prescriptions Reported Meds & Active Scripts Active Augmentin (Amoxicillin-Clavulanate) 875-125 Mg Tab 1 Tab PO BID 14 Days Review of Systems Except as stated in HPI: all other systems reviewed are Neg Physical Exam Narrative GENERAL: Well-nourished, well-developed male in no acute distress. Afebrile. Ambulatory. Crying in pain. SKIN: Focused skin assessment warm/dry. HEAD: Normocephalic. EYES: No scleral icterus. No injection or drainage. NECK: Supple, trachea midline. No JVD or lymphadenopathy. DENTAL: Packing in place to the right lower molars. Mild right-sided facial edema. Data Data Last Documented VS Vital Signs Date Time Temp Pulse Resp B/P (MAP) Pulse Ox O2 Delivery O2 Flow Rate FiO2 06/29/17 15:55 98.2 59 24 167/83 (111) 98 Room Air [facility] Medical Screen Exam Complete: Yes Emergency Medical Condition: No Differential Diagnosis Medication refill Narrative Course 27-year-old male presents to the emergency room requesting pain medication after he had his tooth pulled this morning. States he was discharged with prescriptions for pain medication but cannot afford to have them filled. He received IV antibiotics overnight in the hospital last night and has a prescription for antibiotics by mouth to continue. Vital signs stable. Physical exam reveals packing in place around tooth that was just removed. There are no urgent or emergent medical conditions at this time. A medical screening exam was performed: At the time of evaluation the presenting medical condition was determined not to be of an emergent nature. The patient was given the option of receiving additional care, such as ibuprofen , but declined. Patient was given options for additional community resources from which to obtain care. The Patient Has Been advised to seek medical attention for their presenting complaint. The patient has been advised to return to the ER at any time if an emergent condition develops. Primary Impression: Encounter for medical screening examination Disposition: 01 DISCHARGE HOME Condition: Stable Yohana Stein Jun 29, 2017 16:35
== END 2017-06-29 16:27 | disposition left against medical advice (07) ==
LOC: NEPK 15:53
DX: K08.89 Other specified disorders of teeth and supporting structures (principal)
CPT/HCPCS: 99281

== ENCOUNTER 2017-11-02 17:00 | Emergency (ER) | payer SELFPAY ==
[~2017-11-02] VITALS: Ht 185.4 cm; Wt 80.0 kg
[2017-11-02 17:10] VITALS: BP 126/58; PULSE 78; RESP 18; TEMP 98.7; O2SAT 99
[2017-11-02] MEDS ORDERED: traMADol HCL 50 MG TAB PO ONE (17:30)
[2017-11-02] MEDS ORDERED: TRAM50 PO (17:32)
[2017-11-02] MEDS ORDERED: IBUP1TAB7 PO (17:32)
[2017-11-02] MEDS ORDERED: PENI500T PO (17:32)
[2017-11-02] MEDS ORDERED: PERI0.126 SWISH-SPIT (17:32)
--- NOTE | 2017-11-02 17:32 | PD ---
HPI Chief Complaint: Oral / Dental Pain or Problem Time Seen by Provider: 17:17 Travel History International Travel<30 days: No Contact w/Intl Traveler<30days: No Traveled to known affect area: No History of Present Illness HPI 27-year-old male with no significant medical history presents emergency department for evaluation of 3 day history of right maxillary second and third molar pain after biting into a hard cold piece of pizza. Patient does not believe the tooth broke but feels that it caused something to move and cause infection. Patient states the pain has only worsened since then. It is significant, constant, throbbing. States he has had a dental abscess in the past and this is what it has felt like. Denies any fever chills. No other trauma. No other symptoms to report. PFSH Past Medical History Medical History: Denies Significant Hx Diminished Hearing: No Immunizations Current: Yes Social History Alcohol Use: Yes Tobacco Use: No Substance Use: Yes (marijuana and beer) Allergies-Medications (Allergen,Severity, Reaction): Coded Allergies: No Known Allergies (Verified Adverse Reaction, Unknown, 06/28/17) Reported Meds & Prescriptions Reported Meds & Active Scripts Active Ultram (Tramadol HCl) 50 Mg Tab 50 Mg PO Q8H PRN Ibuprofen 800 Mg Tab 800 Mg PO Q8H PRN Peridex Liq (Chlorhexidine Gluconate (Mouth) Liq) 0.12% Soln 15 Ml SWISH-SPIT BID Penicillin V Potassium 500 Mg Tab 500 Mg PO Q8H 10 Days Augmentin (Amoxicillin-Clavulanate) 875-125 Mg Tab 1 Tab PO BID 14 Days Review of Systems Except as stated in HPI: all other systems reviewed are Neg Physical Exam Narrative GENERAL: Well-nourished, well-developed male patient, ambulatory no acute distress SKIN: Focused skin assessment warm/dry. HEAD: Normocephalic. No erythema or edema EYES: No scleral icterus. No injection or drainage. DENTAL: No loose or chipped teeth. Significantly decayed left maxillary second and third molars with significant gingival erythema and edema. No appreciable abscess. No malocclusion. NECK: Supple, trachea midline. No JVD or lymphadenopathy. CARDIOVASCULAR: Regular rate and rhythm without murmurs, gallops, or rubs. RESPIRATORY: Breath sounds equal bilaterally. No accessory muscle use. MUSCULOSKELETAL: No cyanosis, or edema. BACK: Nontender without obvious deformity. No CVA tenderness. Data Data Last Documented VS Vital Signs Date Time Temp Pulse Resp B/P (MAP) Pulse Ox O2 Delivery O2 Flow Rate FiO2 11/02/17 17:10 98.7 78 18 126/58 (80) 99 Orders Orders Tramadol (Ultram) (11/02/17 17:30) Ed Discharge Order (11/02/17 17:33) MDM Medical Decision Making Medical Screen Exam Complete: Yes Emergency Medical Condition: Yes Medical Record Reviewed: Yes Differential Diagnosis Dental caries versus dental abscess versus gingivitis versus pulpitis versus periodontal disease Narrative Course 19-year-old male presents emergency department for evaluation of dental pain. Physical exam is consistent with dental caries and associated gingivitis. Patient was started on oral antibiotic, Peridex oral rinse, provided pain control. He is encouraged to seek dental evaluation. He agrees to return immediately with acute worsening of symptoms. Diagnosis Primary Impression: Dentalgia Additional Impressions: Gingivitis Dental caries Referrals: Dentist Patient Instructions: Dental Caries (ED), General Instructions Additional Instructions: Follow-up with a dentist Return immediately with acute worsening of symptoms Med/Other Pt SpecificInfo: Prescription(s) given Scripts Tramadol (Ultram) 50 Mg Tab 50 MG PO Q8H Y for PAIN GREATER THAN 6, #12 TAB 0 Refills Prov: Oriana Truong 11/02/17 Ibuprofen (Ibuprofen) 800 Mg Tab 800 MG PO Q8H Y for Pain/Inflammation, #30 TAB 0 Refills Prov: rOiana Truong 11/02/17 Chlorhexidine Gluconate (Mouth) Liq (Peridex Liq) 0.12% Soln 15 ML SWISH-SPIT BID, #473 ML 0 Refills Prov: Oriana Truong 11/02/17 Penicillin V Potassium (Penicillin V Potassium) 500 Mg Tab 500 MG PO Q8H for Infection for 10 Days, #30 TAB 0 Refills Prov: Oriana Truong 11/02/17 Disposition: 01 DISCHARGE HOME Condition: Stable Oriana Truong November 02, 2017 17:32
== END 2017-11-02 17:42 | disposition home or self-care (01) ==
LOC: NEPK 17:00
DX: K05.10 Chronic gingivitis, plaque induced (principal); K02.9 Dental caries, unspecified
CPT/HCPCS: 99283